=== PATIENT | female | born 1995 | race Caucasian/White ===

== ENCOUNTER → 2017-10-14 | Outpatient (CLI) | payer OTHER ==
[~2017-10-14] MED LIST: PREN-127 PO
[2017-10-14 16:35] LABS: PLATELET COUNT, AUTOMATED 192 K/uL (150-450)
== END ==
LOC: LAB 16:17
PROVIDERS: ATTEND Obstetrics & Gynecology
DX: Z34.91 Encounter for supervision of normal pregnancy, unspecified, first trimester (principal)
CPT/HCPCS: 36415; 85025; 86592; 86703; 86762; 86850; 86900; 86901; 87088; 87340

== ENCOUNTER → 2017-10-22 | Outpatient (CLI) | payer OTHER | LOC: LAB 14:37 | PROVIDERS: ATTEND Obstetrics & Gynecology | DX: Z34.91 Encounter for supervision of normal pregnancy, unspecified, first trimester (principal); Z11.3 Encounter for screening for infections with a predominantly sexual mode of transmission; Z11.8 Encounter for screening for other infectious and parasitic diseases | CPT/HCPCS: 87491; 87591 ==

== ENCOUNTER → 2017-12-24 | Outpatient (CLI) | payer OTHER ==
[~2017-12-24] MED LIST changes: +ACET-1966 PO; +FLUT16SP19 NS
--- NOTE | 2017-12-24 11:31 | RADIOLOGY IMAGING REPORT ---
FACILITY: [facility] PATIENT NAME: Charmaine Quiroga : 1995 MR: [id number] V: [id number] EXAM DATE: ORDERING PHYSICIAN: MEENA TEJEDA TECHNOLOGIST: Location: [facility] - [place] Patient: Charmaine Quiroga : 1995 Visit/Account:[id number] Date of Sevice: 12/24/2017 OB ANATOMICAL SURVEY HISTORY: Supervision normal COMPARISON: None. TECHNIQUE: Transabdominal imaging was performed for assessment of the fetus and maternal pelvic s tructures. Transvaginal imaging was not performed. FINDINGS: Intrauterine gestations: One. presentation: Cephalic. heart rate: 144 bpm. Amniotic fluid volume: Normal; YUAN 10.8 cm; MVP 3.04 cm. Placenta: Posterior. Uterus: Gravid, otherwise grossly unremarkable where visualized. Maternal adnexa/ovaries: Grossly unremarkable, ovaries not visualized. Cervix: Closed. Gestational Parameters: BPD: 4.19 cm, 80th percentile HC: 16.04 cm, 82nd percentile AC: 13.4 cm, 76th percentile FL: 2.88 cm, 76th percentile Average ultrasound age (AUA): 19 weeks/ zero days Estimated age based on LMP: 18 weeks/ zero days, 91st percentile Estimated weight (EFW): 261 grams +/- 38 grams Anatomic Survey: Intracranial structures, 4-chamber heart, stomach, kidneys, urinary bladder, spine, 3-vessel cord and cord insertion are unremarkable. Two upper and two lower extremities visualized. IMPRESSION: Single viable fetus in cephalic presentation with an estimated gestational age by measurements of 19 weeks and zero days. Estimated weight by last menstrual period is 18 weeks YUAN measures 10.8 cm Estimated weight 261 g Report Dictated By: Marybel Flores MD at 12/24/2017 11:17 AM Report E-Signed By: Marybel Flores MD at 12/24/2017 11:27 AM SIDNEYN:CECE
== END ==
LOC: RAD 08:35
PROVIDERS: ATTEND Obstetrics & Gynecology
DX: Z02.9 Encounter for administrative examinations, unspecified (principal)
CPT/HCPCS: 76811

== ENCOUNTER → 2018-01-15 | Outpatient (CLI) | payer OTHER ==
[~2018-01-15] MED LIST changes: +OMEP-125 PO
== END ==
LOC: LAB 10:58
PROVIDERS: ATTEND Obstetrics & Gynecology
DX: Z34.82 Encounter for supervision of other normal pregnancy, second trimester (principal)
CPT/HCPCS: 36415; 81511

== ENCOUNTER → 2018-03-05 | Outpatient (CLI) | payer OTHER ==
[~2018-03-05] MED LIST changes: +DIPH0.5D12 IM
[2018-03-05 12:07] LABS: PLATELET COUNT, AUTOMATED 209 K/uL (150-450)
== END ==
LOC: LAB 10:25
PROVIDERS: ATTEND Obstetrics & Gynecology
DX: Z36.9 Encounter for antenatal screening, unspecified (principal); Z34.90 Encounter for supervision of normal pregnancy, unspecified, unspecified trimester
CPT/HCPCS: 36415; 82950; 85025

== ENCOUNTER → 2018-03-18 | Outpatient (CLI) | payer OTHER | LOC: LAB 15:34 | PROVIDERS: ATTEND Obstetrics & Gynecology | DX: O21.9 Vomiting of pregnancy, unspecified (principal) | CPT/HCPCS: 36415; 82040; 82247; 82310; 82374; 82435; 82565; 82947; 84075; 84132; 84155; 84295; 84450; 84460; 84520; 85027 ==

== ENCOUNTER → 2018-04-30 | Outpatient (CLI) | payer OTHER ==
[~2018-04-30] MED LIST changes: +FLU60SYR36 IM
== END ==
LOC: LAB 15:40
PROVIDERS: ATTEND Obstetrics & Gynecology
DX: Z34.83 Encounter for supervision of other normal pregnancy, third trimester (principal); Z36.85 Encounter for antenatal screening for Streptococcus B
CPT/HCPCS: 87081

== ENCOUNTER 2018-05-28 05:31 | Inpatient (IN) | payer OTHER ==
[~2018-05-28] VITALS: Ht 166.4 cm; Wt 88.0 kg
[2018-05-28] MEDS ORDERED: OXYTOCIN 30 UNIT/D5LR 500 ML 500 ML IV PRN (05:32)
[2018-05-28] MEDS ORDERED: FAMOTIDINE(*) 20MG/50ML PREMIX 50 ML IVPB PRN (05:32)
[2018-05-28] MEDS ORDERED: ceFAZolin(*) 2GM/D5W 50ML 50 ML IVPB PRN (05:32)
[2018-05-28] MEDS ORDERED: ACETAMINOPHEN 500 MG TAB PO PRN (05:35)
[2018-05-28] MEDS ORDERED: LIDOCAINE/SOD BICARB 8.4% SYR SC PRN (05:35)
[2018-05-28] MEDS ORDERED: LIDOCAINE 1% LOCAL 300 MG/30ML INJ PRN (05:35)
[2018-05-28] MEDS ORDERED: METOCLOPRAMIDE 10 MG/2 ML SDV IVP PRN (05:35)
[2018-05-28] MEDS ORDERED: fentaNYL CITR 100 MCG/2 ML AMP IVP PRN (05:35)
[2018-05-28] MEDS ORDERED: TERBUTALINE SULF 1 MG/ML VIAL SUBQ PRN (05:35)
[2018-05-28] MEDS ORDERED: ONDANSETRON 4 MG/2 ML VIAL IVP PRN (05:35)
[2018-05-28] MEDS: LR(*) 1000 ML BAG 1,000 ML IV PRN ×2 (06:13→12:03)
[2018-05-28 06:15] VITALS: BP 111/64; Ht 166.4 cm; Wt 88.0 kg
[2018-05-28 06:28] LABS: PLATELET COUNT, AUTOMATED 194 K/uL (150-450)
--- NOTE | 2018-05-28 08:51 | History & Physical ---
History of Present Illness Age of Patient: 22 : 2 Para or TPAL: 1 EDC per U/S: May 27, 2018 Estimated Gestational Age: 40 Chief Complaint Elective IOL at 40 1/7 d/t remote from hospital. Lives in [place] History of Present Illness none History Patient's Blood Type: A Positive Rubella Status: Immune Group B Strep Screen: Negative Obstetrical History: 03/30/13 [id number] boy s/p SROM in [facility] Past Medical History: no significant history Allergies: Coded Allergies: No Known Drug Allergies (Unverified , 10/14/17) Social History: Berry Denies etoh, drugs and smoking Family History: FH: lung cancer Paternal grandmother Paternal grandfather Med Rec Home Meds Active Scripts Omeprazole (OMEPRAZOLE) 20 Mg Capsule.dr, 1 CAP PO QDAY, #60 CAP 5 Refills Prov:MEENA TEJEDA MD 01/15/18 Reported Medications Acetaminophen (TYLENOL) 325 Mg Tablet, 325 MG PO, TAB 12/10/17 Vits W-Ca,Fe,Fa(<1MG) ( VITAMINS) 1 Each Tablet, 1 EACH PO ARIA LY, TAB 10/14/17 Discontinued Reported Medications Fluticasone Prop 50 Mcg Ns (FLONASE 50 MCG NS) 16 Gm [place].susp, 1 SPRAY NS BID, BOT 12/10/17 Exam General Exam Vital Signs Vital Signs Date Time Temp Pulse Resp B/P (MAP) Pulse Ox O2 Delivery O2 Flow Rate FiO2 05/28/18 06:15 97.5 88 16 111/64 (80) 95 General Apperance: Alert/Awake/No Acute Distress Neuro: No Gross deficits Eyes: Normal Extraocular Movement & Vison, PERRLA ENT: Normal Cardiovascular: Regular Rate and Rhythm Respiratory: No Respiratory Distress, Clear to Auscultation Abdomen: Soft, Non-Tender, Non-Distended : Normal Musculoskeletal: No Weakness/Pain Extremities: No Cyanosis,Clubbing or Edema Integumentary: Skin Intact without Lesions or Rash Psychological: Alert & Oriented X3, Appropriate Mood & Affect Cervical Dialation: 4 Cervical Effacement (%): 70 Cervical Consistency: Soft Cervical Position: Posterior Station: -1 Presentation: Vertex Uterine Contraction Strength: Moderate UC Resting Tone: Soft Fetus Feeling Movement?: Yes Heart Tone Variabilty: Moderate FHT Accelerations: 15X15 FHT Decelerations: None FHT Category: I Medical Decision Making Data Points Result Diagram: 05/28/18 0610 Pre-Admit Course Medical Record Review: Yes VTE Prophylasis: Adult Deep Vein Thrombosis/Pulmonary: No Pharmacological Contraindicati: Pt at Low Risk for VTE Mechanical Contraindications: Pt at Low Risk for VTE Assessment and Plan Hospital Day: 1 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 SVE: /-1 at admit. Possible AROM for labor progression at next cervical check. FHM cat 1. Mom tolerating contractions and not feeling pain at this time. Denies LOF, VB and pre Eclampsia at the bedside and appears supportive. Condition Pt admitted to L&D for elective IOL at 40 1/7 d/t remote from hospital Problem Qualifiers (1) Supervision of normal : Trimester: third trimester CARLOS BORREGO CNM May 28, 2018 08:51
--- NOTE | 2018-05-28 09:06 | Labor Progress Note ---
Labor Subjective Progress Notes Subjective Pt is sitting on the ball and rocking. C/o only mild pain at this time. Denies LOF, VB, and Pre E symptoms. at bedside and very supportive. Interested in AROM if possible. Feeling Movement?: Yes Labor Pain: Mild Eyes: No Visual Disturbances Labor Objective Vital Signs VS reviewed in centricity Vital Signs Date Time Temp Pulse Resp B/P (MAP) Pulse Ox O2 Delivery O2 Flow Rate FiO2 05/28/18 06:15 97.5 88 16 111/64 (80) 95 Cervical Dialation: 4 Cervical Effacement (%): 75 Cervical Consistency: Moderate Cervical Position: Posterior Station: -1 Presentation: Vertex Uterine Contractions(Q min): 3 Uterine Contraction Strength: Moderate UC Resting Tone: Soft Fetus Estimated Weight(grams): 3500 Heart Tones: 135 Heart Tone Variabilty: Moderate FHT Accelerations: 15X15 FHT Decelerations: None FHT Category: I General Exam General Appearance: Alert/Awake/No Acute Distress ENT: Normal Neck: No Masses Cardiovascular: Normal Rhythm & Peripheral Pulses Respiratory: No Respiratory Distress, Clear to Auscultation Abdomen: Soft, Non-Tender, Non-Distended : Normal Musculoskeletal: No Weakness/Pain Extremities: No Cyanosis,Clubbing or Edema Integumentary: Skin Intact without Lesions or Rash Other Result Diagram: 05/28/18 0610 Assessment and Plan Hospital Day: 1 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 at 40w1d wks with an Estimated Date of Delivery: 05/27/18 dated by Shar Santizo 1. Labor state: Early labor IOL: elective induction for safety 2. well-being: Category 1 FHT: Continous monitoring for IOL 3. Maternal well-being: VSS, Afeb, normotensive, reviewed AROM r/b/a for labor progression. Pt desires AROM. Cervix still very posterior, so will reassess in 30 min for AROM 4. PNL: GBS Neg Type/Rh A+, rubella immune 5. Pain Management: none, plans for MOHINDER once in active labor 6. Feed: Breast 7. PPBCM: 8. c/b: none 9.Anticipate , re-evaluate in 2-3 hours or prn Problem Qualifiers (1) Supervision of normal : Trimester: third trimester CARLOS BORREGO CNM May 28, 2018 09:06
[2018-05-28] MEDS ORDERED: CALCIUM CARBONATE 500 MG CHEW PO PRN (10:00)
[2018-05-28] MEDS ORDERED: FENTANYL/ROPIVACAINE 100 ML BAG EPI PRN (10:55)
[2018-05-28] MEDS ORDERED: EPIDURAL KEYS XX PRN (10:55)
[2018-05-28] MEDS ORDERED: fentaNYL CITR 100 MCG/2 ML AMP IT PRN (10:55)
[2018-05-28] MEDS ORDERED: BUPIVACAINE 0.5% INJ 30ML VIAL EPI PRN (10:55)
[2018-05-28] MEDS ORDERED: BUPIVACAINE 0.25% MPF INJ EPI PRN (10:55)
[2018-05-28] MEDS ORDERED: LIDOCAINE/PF 2% 200MG/10ML AMP 200 MG/10 ML AMPUL EPI PRN (10:55)
[2018-05-28] MEDS ORDERED: LIDO/EPI 2% MPF 1:200,000 20ML EPI PRN (10:55)
--- NOTE | 2018-05-28 11:44 | Labor Progress Note ---
Labor Subjective Progress Notes Subjective Pt is starting to feel more uncombable now and would like to be checked. Ambulating around the room. Denies VB, and LOF. C/o of nausea and acid reflux Feeling Movement?: Yes Vaginal Discharge/Fluid: Bloody Show, Clear Fluid Labor Pain: Moderate Eyes: No Visual Disturbances Labor Objective Vital Signs Vital Signs Date Time Temp Pulse Resp B/P (MAP) Pulse Ox O2 Delivery O2 Flow Rate FiO2 05/28/18 06:15 97.5 88 16 111/64 (80) 95 Vaginal Discharge/Fluid?: Bloody Show, Clear Fluid Cervical Dialation: 5 Cervical Effacement (%): 70 Cervical Consistency: Soft Cervical Position: Posterior Station: -1 Presentation: Vertex Uterine Contractions(Q min): 3 Uterine Contraction Strength: Moderate UC Resting Tone: Soft Fetus Estimated Weight(grams): 3500 Heart Tones: 130 Heart Tone Variabilty: Moderate FHT Accelerations: 15X15 FHT Decelerations: None FHT Category: I General Exam General Appearance: Alert/Awake/No Acute Distress ENT: Normal Respiratory: No Respiratory Distress Abdomen: Gravid - Non-Tender Psychological: Alert & Oriented X3 Other Result Diagram: 05/28/18 0610 Assessment and Plan Problems: (1) Supervision of normal Status: Acute (2) Elective induction of labor planned Onset Date: ~ 05/28/2018 Status: Acute Assessment & Plan: Assessment/Plan: NELSON is a 22y.o. at 40w1d wks with an Estimated Date of Delivery: 05/27/18 dated by Shar Santizo 1. Labor state: Active Labor IOL: elective induction for safety 2. well-being: Category 1 FHT: Continuous monitoring for IOL and epidural 3. Maternal well-being: VSS, Afeb, normotensive, reviewed AROM for moderate amount of clear fluid 10:35. Cervix still very posterior, but went from 4-5cm. 4. PNL: GBS Neg Type/Rh A+, rubella immune 5. Pain Management: Getting MOHINDER now 6. Feed: Breast 7. PPBCM: 8. c/b: none 9.Anticipate , re-evaluate in 2 hours or prn Problem Qualifiers (1) Supervision of normal : Trimester: third trimester CARLOS BORREGO CNM May 28, 2018 11:43
--- NOTE | 2018-05-28 12:05 | Anesthesia OB Pre-Anes Eval ---
History of Present Illness Anesthesia Start Date: May 28, 2018 Anesthesia Start Time: 11:12 OB Anesthesia Diagnosis: induction - elective EDC: May 27, 2018 : 2 Para: 1 Vital Signs: Vital Signs Date Time Temp Pulse Resp B/P (MAP) Pulse Ox O2 Delivery O2 Flow Rate FiO2 05/28/18 06:15 97.5 88 16 111/64 (80) 95 Pain Ratin Result Diagram: 05/28/18 0610 Height (Inches): 65.50 Weight (Pounds): 194 BMI Calculated: 31.79 Past Medical History Medical History: other (dyspepsia during labor) Surgical History: noncontributory Previous Anesthesia: epidural Attended Childbirth Classes?: No Hx Anesthesia Reactions: No Hx Family Anesthesia Reaction: No Current Medications: pitocin Home Meds Active Scripts Omeprazole (OMEPRAZOLE) 20 Mg Capsule.dr, 1 CAP PO QDAY, #60 CAP 5 Refills Prov:MEENA TEJEDA MD 01/15/18 Reported Medications Acetaminophen (TYLENOL) 325 Mg Tablet, 325 MG PO, TAB 12/10/17 Vits W-Ca,Fe,Fa(<1MG) ( VITAMINS) 1 Each Tablet, 1 EACH PO DAILY, TAB 10/14/17 Discontinued Reported Medications Fluticasone Prop 50 Mcg Ns (FLONASE 50 MCG NS) 16 Gm [place].susp, 1 SPRAY NS BID, BOT 12/10/17 Allergies: Coded Allergies: No Known Drug Allergies (Unverified , 10/14/17) Anesthesia OB ROS Neurological: No migraines/headaches, No seizures, No neuropathy, No other ENT: Denies Tooth caps, Denies Loose teeth, Denies Chipped teeth, Denies Dentures, Denies Bridges, Denies Retainers, Denies Veneers, Denies Implants, Denies Tongue ring, Denies Other Pulmonary: No asthma, No smoker (pks/day/yrs), No other Airway Class: ll Cardiovascular ROS: No edema, No arrhythmia, No other GI ROS: ice chips ROS: No Herpes, No STD(s), No Liver Disease, No Renal Disease, No Other Endocrine ROS: No diabetes, No gestational diabetes, No thyroid disorder, No other Musculoskeletal ROS: No low back pain, No low back injury, No scoliosis, No other ASA Classification: 2 Assessment and Plan Anesthesia Plan: LEB (with dural puncture technique) JANELLE SALINAS CRNA May 28, 2018 12:05
--- NOTE | 2018-05-28 12:09 | Procedure Note ---
Anesthetic Placement Note Anesthesia Plan: LEB (with dural puncture technique) Permit for Anesthesia Signed: Yes Anesthesia Technique: Patient Sitting Anesthesia Prep: Chlorhexidine Interspace: L 4-5 Local Anesthetic: 1% Lidocaine, 25 Gauge Needle Amount Local - cc's: 5 Anesthesia Needle: 17g Touhy/Schliff Anesthesia Attempts: 1 Loss of Resistance: Normal Saline Depth of REGINA (cm): 5 Epidural Needle Placement: No CSF, No Blood, No Parasthesia Intrathecal Needle: 27 Gauge Pencan (dural puncture) Cerebral Spinal Fluid: Yes Catheter Insertion (cm): 5 Catheter Type: Munguia - Spring Wound Epidural Dressing: Tegaderm, Tape Anesthesia Tray: Lot Number ([id number]), Expiration Date (03/28/2019), Reference Number ([id number]) Anesthesia Medications: Epidural Test Dose: 1.5 Lido/Epi (1:200,000), Dose - mL (5 mL incrementally), Time (1128), Negative Epidural Loading Dose: 0.2% Ropivicaine, With Fentanyl 2mcg/ml, Dose - ml (6), Time (1140) Epidural Infusion: 0.2% Ropivicaine, With Fentanyl 2mcg/ml, Start Time: (1140) Epidural Pump Setting: Bolus Dose - mL (5), Lockout - Minutes (15), Maintenance Rate - mL/hr (10), Maximum per Hour - mL (25) Complications: None Comment: 100 mcg Fentanyl via epidural at 1135 JANELLE SALINAS CRNA May 28, 2018 12:09
[2018-05-28] MEDS ORDERED: GLYCERIN/WITCH HAZEL LEAF 1 PK TP PRN (14:00)
[2018-05-28] MEDS ORDERED: LANOLIN OINT 7 GM TUBE TP PRN (14:00)
[2018-05-28] MEDS ORDERED: HYDROCORTISONE 2.5% CR 30GM TB PR PRN (14:00)
[2018-05-28] MEDS ORDERED: BENZOCAINE 20% 60 ML BTL TP PRN (14:00)
[2018-05-28] MEDS ORDERED: MAGNESIUM HYDROXIDE* 30ML UDCP PO PRN (14:00)
[2018-05-28] MEDS ORDERED: ACETAMINOPHEN 325 MG TAB PO PRN (14:00)
[2018-05-28] MEDS ORDERED: APAP/HYDROCODONE 325/5 TAB PO PRN (14:00)
--- NOTE | 2018-05-28 14:14 | Anesthesia Progress Note ---
Progress/Maintenance Anesthesia Note Date: May 28, 2018 Anesthesia Note Time: 14:00 Pain Intensity: 0 Pump: Off Motor Level: Bending Knees-Bilateral Assessment and Plan Anesthesia Plan: LEB Anesthesia Stop Day: May 28, 2018 Anesthesia Stop Time: 13:38 Epidural Catheter Removal: Removed Catheter Intact, Yes, Removed by: (Janelle Salinas CRNA) Removal Date: May 28, 2018 Removal Time: 14:00 JANELLE SALINAS CRNA May 28, 2018 14:14
--- NOTE | 2018-05-28 14:30 | OB Delivery Note ---
Delivery Note Vaginal Delivery Type: Spont. Vaginal Delivery Delivery Date: May 28, 2018 Delivery Time: 13:38 Estimated Gestational Age(wks): 40 1/7 Delivery Anesthesia: Epidural Infant Sex: Male Infant Weight (gms): 3567 Apgars: 1 Minute, 5 Minute Repair Needed: Labial Estimated Blood Loss: 150 Notes: of live male . Meconium present before delivery with PEDS at [facility]. APGARS 8/9. Right hemostatic labial laceration no repaired. 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
[2018-05-28] MEDS ORDERED: IBUPROFEN 800 MG TAB PO SCH (15:00)
[2018-05-28 20:15] VITALS: BP 107/71
[2018-05-28] MEDS: DOCUSATE CALCIUM 240 MG CAP PO SCH (20:31)
[2018-05-28 22:57] VITALS: BP 109/58
[2018-05-29] MEDS: IBUPROFEN 800 MG TAB PO SCH ×2 (01:37→10:40)
[2018-05-29 03:57] VITALS: BP 113/59
--- NOTE | 2018-05-29 08:00 | OB/GYN Progress Note ---
OB Subjective Progress Notes Subjective Doing well. Pain controlled with oral medications. Tolerating regular diet. Ambulating. Voiding. Normal lochia. No preeclampsia symptoms. OB Objective Physical Exam Vital Signs Date Time Temp Pulse Resp B/P (MAP) Pulse Ox O2 Delivery O2 Flow Rate FiO2 05/29/18 03:57 98.0 86 16 113/59 (77) Room Air 05/28/18 06:15 95 Intake and Output 05/29/18 06:58 Intake Total 1750 ml Balance 1750 ml Intake IV Total 1750 ml # Voids 3 General Appearance: Alert/Awake/No Acute Distress Neurological: No Gross deficits Eyes: Normal Extraocular Movement & Vison, PERRLA ENT: Normal Neck: No Masses Cardiovascular: Normal Rhythm & Peripheral Pulses Respiratory: No Respiratory Distress Abdomen: Soft, Non-Tender, Non-Distended, Fundus Firm Musculoskeletal: No Weakness/Pain Extremities: No Cyanosis,Clubbing or Edema Integumentary: Skin Intact without Lesions or Rash Psychological: Alert & Oriented X3 Result Diagram: 05/28/18 0610 Assessment and Plan Problems: (1) examination following vaginal delivery Assessment & Plan: PPD#1. Meeting milestones. Desires discharge to home today. Discussed routine expectations. Questions answered. Follow up in clinic in 2-3wks for check. MEENA TEJEDA MD May 29, 2018 08:00
--- NOTE | 2018-05-29 08:10 | OB/GYN Discharge Summary ---
Discharge Summary Reason for Hosp/Final Diag: (1) examination following vaginal delivery Hospital Course & Plan: PPD#1. Meeting milestones. Desires discharge to home today. Discussed routine expectations. Questions answered. Follow up in clinic in 2-3wks for check. Lates Vital Signs Vital Signs Date Time Temp Pulse Resp B/P (MAP) Pulse Ox O2 Delivery O2 Flow Rate FiO2 05/29/18 03:57 98.0 86 16 113/59 (77) Room Air 05/28/18 06:15 95 Weight (Pounds): 194 Result Diagram: 05/28/18 0610 Condition: Improved Discharge: Home, Self Correction Meds Active Scripts Omeprazole (OMEPRAZOLE) 20 Mg Capsule.dr, 1 CAP PO QDAY, #60 CAP 5 Refills Prov:MEENA TEJEDA MD 01/15/18 Reported Medications Acetaminophen (TYLENOL) 325 Mg Tablet, 325 MG PO, TAB 12/10/17 Vits W-Ca,Fe,Fa(<1MG) ( VITAMINS) 1 Each Tablet, 1 EACH PO DAILY, TAB 10/14/17 Discontinued Reported Medications Fluticasone Prop 50 Mcg Ns (FLONASE 50 MCG NS) 16 Gm [place].susp, 1 SPRAY NS BID, BOT 12/10/17 Follow up Referrals: [employer] OPERATOR - In Two Weeks @ [facility] with CARLOS BORREGO CNM Discharge Diet: As Tolerates Discharge Activity: Pelvic Rest MEENA TEJEDA MD May 29, 2018 08:10
--- NOTE | 2018-05-29 08:22 | Anesthesia Post Eval Note ---
Anesthesia Post Eval Note Vital Signs Date Time Temp Pulse Resp B/P (MAP) Pulse Ox O2 Delivery O2 Flow Rate FiO2 05/29/18 03:57 98.0 86 16 113/59 (77) Room Air 05/28/18 06:15 95 Pt able to participate in Eval: Yes Cardiovascular Status: Satisfactory Respiratory Status: Satisfactory Pain Managment: Satisfactory PO Nausea/Vomiting: Satisfactory Temperature Management: Satisfactory Mental Status: Satisfactory, Alert, Oriented X3 Post-Op Hydration Status: Satisfactory, Tolerating PO Well, Voiding w/o Difficulty Anesthesia Type: LEB Anesthesia Tolerance: Tolerated procedure well without apparent anesthetic complications. LP site clear, no redness or edema. Denies headache or any residual paresthesia. Vital Signs Stable, Patient comfortable and condition stable. MANJIT REYNOLDS CRNA May 29, 2018 08:22
[2018-05-29] MEDS: DOCUSATE CALCIUM 240 MG CAP PO SCH (08:53)
[2018-05-29 08:54] VITALS: BP 116/61
[2018-05-29 15:12] VITALS: BP 127/60
== END 2018-05-29 16:35 | disposition home or self-care (01) | DRG 807 ==
LOC: OB 05:31
PROVIDERS: ADMIT Obstetrics & Gynecology; ATTEND Obstetrics & Gynecology
PROC: 10E0XZZ Delivery of Products of Conception, External Approach (ICD-10-PCS; principal; 2018-05-28)
PROC: 3E033VJ Introduction of Other Hormone into Peripheral Vein, Percutaneous Approach (ICD-10-PCS; 2018-05-28)
PROC: 10907ZC Drainage of Amniotic Fluid, Therapeutic from Products of Conception, Via Natural or Artificial Opening (ICD-10-PCS; 2018-05-28)
DX: O77.0 Labor and delivery complicated by meconium in amniotic fluid (principal); Z37.0 Single live birth; O70.0 First degree perineal laceration during delivery; Z3A.40 40 weeks gestation of pregnancy
CPT/HCPCS: 85025; 86850; 86900; 86901; J2405; J2590; J3010; J3490; J7120